=== PATIENT | male | born 1960 | race Caucasian/White ===

== ENCOUNTER 2017-05-16 10:40 | Inpatient (IN) | payer OTHER ==
[~2017-05-16] VITALS: Ht 185.4 cm; Wt 89.5 kg
[~2017-05-16 10:40] MED LIST: BENZTROPINE MESY1 MG PO; CIPRO500 MG PO; DEPAKOTE250 MG PO; DEPAKOTE500 MG PO; FISH OIL500 MG PO; FLAGYL500 MG PO; INDERAL20 MG PO; INVEGA3 MG PO; INVEGA9 M1 PO; LORAZEPAM0.5 MG PO; NORCO 5/3251 TABLET PO; PERPHENAZINE8 MG PO; PROTONIX40 MG PO; SIMVASTATIN20 MG PO; TRAZODONE HCL100 MG PO; TRAZODONE HCL50 MG PO; VIAGRA50 MG PO
[2017-05-16 14:35] LABS: BASOPHIL (%) 0.5 % (0-1); EOSINOPHIL (%) 1.3 % (0-5); EOSINOPHIL COUNT 0.1 K/uL (0-0.3); HEMATOCRIT 41.3 % (38.0-50.0); HEMOGLOBIN 14.2 G/DL (12.5-16.6); IMMATURE GRANULOCYTE (%) 0.2 % (0.0-0.7); LYMPHOCYTE (%) 34.7 % (15-42); LYMPHOCYTE COUNT 2.1 K/uL (1.0-2.8); MCH 30.2 PG (29.0-34.0); MCHC 34.4 G/DL (30.0-36.0); MCV 87.9 FL (86-99); MONOCYTE (%) 5.9 % (3-12); MONOCYTE COUNT 0.4 K/uL (0-0.8); NEUTROPHIL (%) 57.4 % (45-76); NEUTROPHIL COUNT 3.5 K/uL (1.8-6.4); PLATELET COUNT 159 K/uL (156-360); RBC DIS.WIDTH-CV 12.5 % (11.8-14.6); RBC DIS.WIDTH-SD 40.8 % (39-53); WHITE BLOOD COUNT 6.1 K/uL (4.1-10.2)
[2017-05-16 14:55] LABS: CHLORIDE 103 mEq/L (99-109); POTASSIUM 4.2 mEq/L (3.7-5.4); SODIUM 141 mEq/L (136-147)
[2017-05-16 14:56] LABS: GLUCOSE 91 mg/dL (70-99)
[2017-05-16 15:00] LABS: CREATININE 0.8 mg/dL (0.6-1.3); GFR ESTIMATE (CALCULATED) > 59 mL/min/ (58.99-99999); SERUM ETHYL ALCOHOL < 10 mg/dL
[2017-05-16 15:00] LABS: APPEARANCE CLEAR ((CLEAR)); BILIRUBIN NEGATIVE; BLOOD NEGATIVE; COLOR STRAW ((YELLOW)); GLUCOSE (STRIP) NEGATIVE; KETONES NEGATIVE; LEUKOCYTES NEGATIVE; NITRITE NEGATIVE; PROTEIN (STRIP) NEGATIVE; SPECIFIC GRAVITY 1.006 (1.000-1.030); UROBILINOGEN 0.2 MG/DL (0.2-1.0)
[2017-05-16 15:25] LABS: AMPHETAMINE NEGATIVE (500 ng/mL); BARBITURATES NEGATIVE (200 ng/mL); BENZODIAZEPINES PRESUMPTIVE POSITIVE (150 ng/mL); BUPRENORPHINE NEGATIVE (10 ng/mL); COCAINE NEGATIVE (150 ng/mL); METHADONE NEGATIVE (200 ng/mL); METHAMPHETAMINE NEGATIVE (500 ng/mL); OPIATES (MORPHINE) NEGATIVE (100 ng/mL); OXYCODONE NEGATIVE (100 ng/mL); PHENCYCLIDINE NEGATIVE (25 ng/mL); PROPOXYPHENE NEGATIVE (300 ng/mL); THC CANNABINOIDS NEGATIVE (50 ng/mL); TRICYCLIC ANTIDEPRESSANTS NEGATIVE (300 ng/mL)
[2017-05-16 15:53] LABS: BENZODIAZEPINES, URINE SCREEN Negative (200 ng/mL)
[2017-05-16 16:01] LABS: UREA NITROGEN (BUN) 8 mg/dL (9-23)
[2017-05-16 16:42] VITALS: BP 102/61
[2017-05-16 17:17] VITALS: BP 102/61
[2017-05-17 07:54] VITALS: BP 118/59
[2017-05-17 15:27] VITALS: BP 142/64
[2017-05-18 08:01] VITALS: BP 99/57
[2017-05-18 15:46] VITALS: BP 113/78
[2017-05-19 08:01] VITALS: BP 105/66
[2017-05-19 15:27] VITALS: BP 103/67
[2017-05-20 07:50] VITALS: BP 132/76
[2017-05-20 15:20] VITALS: BP 111/68
[2017-05-21 07:40] VITALS: BP 133/68
[2017-05-21 15:56] VITALS: BP 102/66
[2017-05-22 09:11] VITALS: BP 104/64
[2017-05-22 15:29] VITALS: BP 118/69
[2017-05-23 07:27] VITALS: BP 110/63
[2017-05-23] MEDS ORDERED: INVEGA9 M1 PO (09:44)
[2017-05-23] MEDS ORDERED: TRAZODONE HCL100 MG PO (09:44)
[2017-05-23] MEDS ORDERED: BENZTROPINE MESY1 MG PO (09:44)
[2017-05-23] MEDS ORDERED: DEPAKOTE500 MG PO (09:44)
[2017-05-23] MEDS ORDERED: INVEGA3 MG PO (09:44)
[2017-05-23] MEDS ORDERED: INDERAL20 MG PO (09:44)
[2017-05-23] MEDS ORDERED: LORAZEPAM0.5 MG PO (09:44)
== END 2017-05-23 10:40 | disposition home or self-care (01) | DRG 885 ==
LOC: EME 10:40 → 1WEST 14:11 → EDOF 14:11 → ENRESERV 16:10 → 1WEST 16:38
PROVIDERS: Emergency Medicine
DX: F20.3 Undifferentiated schizophrenia (principal); F32.9 Major depressive disorder, single episode, unspecified; Z87.891 Personal history of nicotine dependence; Z81.8 Family history of other mental and behavioral disorders
CPT/HCPCS: 80048; 80164; 81003; 84999; 85025; 90839; 97150 GO; 97165 GO; 99281; 99284; G0480

== ENCOUNTER 2017-10-12 15:43 | Emergency (ER) | payer OTHER ==
[~2017-10-12] VITALS: Ht 185.4 cm; Wt 81.8 kg
[2017-10-12 16:18] LABS: HEMOGLOBIN 13.5 G/DL (12.5-16.6); MCH 31.1 PG (29.0-34.0); MCHC 35.5 G/DL (30.0-36.0); MCV 87.6 FL (86-99); PLATELET COUNT 140 K/uL (156-360); RBC DIS.WIDTH-CV 12.4 % (11.8-14.6); RBC DIS.WIDTH-SD 39.6 % (39-53); RED BLOOD COUNT 4.34 M/uL (4.00-5.50); WHITE BLOOD COUNT 6.2 K/uL (4.1-10.2)
[2017-10-12 16:28] LABS: ALBUMIN 4.4 g/dL (3.2-4.8); CHLORIDE 106 mEq/L (99-109); POTASSIUM 4.1 mEq/L (3.7-5.4); SODIUM 141 mEq/L (136-147)
[2017-10-12 16:30] LABS: GLUCOSE 90 mg/dL (70-99)
[2017-10-12 16:31] LABS: TOTAL PROTEIN 6.7 g/dL (6.4-8.3)
[2017-10-12 16:32] LABS: TOTAL BILIRUBIN 0.4 mg/dL (0.0-1.0)
[2017-10-12 16:33] LABS: SERUM ETHYL ALCOHOL < 10 mg/dL
[2017-10-12 16:34] LABS: ALKALINE PHOSPHATASE 59 IU/L (3-129); CREATININE 0.9 mg/dL (0.6-1.3); GFR ESTIMATE (CALCULATED) > 59 mL/min/ (58.99-99999)
[2017-10-12 16:35] LABS: UREA NITROGEN (BUN) 12 mg/dL (9-23)
[2017-10-12 16:36] LABS: AST (GOT) 14 IU/L (2-34)
[2017-10-12 16:37] LABS: ALT (GPT) 11 IU/L (3-49)
[2017-10-12 16:39] LABS: APPEARANCE CLEAR ((CLEAR)); BILIRUBIN NEGATIVE; BLOOD NEGATIVE; COLOR COLORLESS ((YELLOW)); GLUCOSE (STRIP) NEGATIVE; KETONES NEGATIVE; LEUKOCYTES NEGATIVE; NITRITE NEGATIVE; PROTEIN (STRIP) NEGATIVE; SPECIFIC GRAVITY 1.004 (1.000-1.030); UCUL ADDED? NO; UROBILINOGEN 0.2 MG/DL (0.2-1.0)
[2017-10-12 17:08] LABS: AMPHETAMINE NEGATIVE (500 ng/mL); BARBITURATES NEGATIVE (200 ng/mL); BENZODIAZEPINES NEGATIVE (150 ng/mL); BUPRENORPHINE NEGATIVE (10 ng/mL); COCAINE NEGATIVE (150 ng/mL); METHADONE NEGATIVE (200 ng/mL); METHAMPHETAMINE NEGATIVE (500 ng/mL); OPIATES (MORPHINE) NEGATIVE (100 ng/mL); OXYCODONE NEGATIVE (100 ng/mL); PHENCYCLIDINE NEGATIVE (25 ng/mL); PROPOXYPHENE NEGATIVE (300 ng/mL); THC CANNABINOIDS NEGATIVE (50 ng/mL); TRICYCLIC ANTIDEPRESSANTS NEGATIVE (300 ng/mL)
[2017-10-12] MEDS ORDERED: COGENTIN1 MG PO (22:15)
[2017-10-13 00:47] VITALS: BP 137/82
== END 2017-10-13 00:48 ==
LOC: EME 15:43
PROVIDERS: Emergency Medicine
DX: F25.9 Schizoaffective disorder, unspecified (principal); R44.0 Auditory hallucinations; Z87.891 Personal history of nicotine dependence
CPT/HCPCS: 80053; 81003; 85027; 90837; 99281; 99285; G0480